=== PATIENT | female | born 1940 | race Caucasian/White ===

== ENCOUNTER → 2016-10-15 | Outpatient (REF) | payer MEDICARE, OTHER | LOC: M SMT 13:07 | PROVIDERS: ATTEND Nurse Practitioner Family | DX: Q61.00 Congenital renal cyst, unspecified (principal); Z79.899 Other long term (current) drug therapy | CPT/HCPCS: 81001; 87086; G0463 ==

== ENCOUNTER → 2017-03-10 | Outpatient (REF) | payer MEDICARE, OTHER | LOC: M LAB REF 16:56 | PROVIDERS: ATTEND Nurse Practitioner Women's Health | DX: N39.0 Urinary tract infection, site not specified (principal) ==

== ENCOUNTER 2023-10-28 14:52 | Inpatient (IN) | payer OTHER, MEDICARE ==
[~2023-10-28] VITALS: Ht 160 cm; Wt 74.1 kg
[2023-10-28] MEDS ORDERED: ISOVUE-370 76% 100ML VIAL As Ordered ONE (15:18)
[2023-10-28 15:37] LABS: BASO # 0.1 10^3/uL (0.0-0.2); BASO % 0.4 % (0.0-1.0); EOS # 0.2 10^3/uL (0.0-0.5); EOS % 1.4 % (0.0-3.0); HEMATOCRIT 39.7 % (36.0-47.0); HEMOGLOBIN 13.7 g/dl (12.0-15.5); LYMPH # 2.3 10^3/uL (1.5-5.0); LYMPH % 20.9 % (24.0-44.0); MEAN CORPUSCULAR HEMOGLOBIN 33.6 pg (27.0-33.0); MEAN CORPUSCULAR HGB CONC 34.5 g/dl (32.0-36.5); MEAN CORPUSCULAR VOLUME 97.3 fl (80.0-96.0); MONO # 0.7 10^3/uL (0.0-0.8); MONO % 6.5 % (2.0-8.0); NEUTROPHILS # 7.8 10^3/uL (1.5-8.5); NEUTROPHILS % 70.3 % (36.0-66.0); PLATELET COUNT, AUTOMATED 221 10^3/uL (150-450); RED BLOOD COUNT 4.08 10^6/uL (4.00-5.40); WHITE BLOOD COUNT 11.1 10^3/uL (4.0-10.0)
[2023-10-28 15:49] LABS: INR 1.06; PARTIAL THROMBOPLASTIN TIME 27.3 SECONDS (24.8-34.2); PROTHROMBIN TIME 13.5 SECONDS (12.5-14.5)
[2023-10-28 16:00] LABS: ALBUMIN 3.5 G/DL (3.2-5.2); ALKALINE PHOSPHATASE 72 U/L (46-116); ALT/SGPT 18 U/L (7.0-40); AST/SGOT 20 U/L (<34); BILIRUBIN,DIRECT < 0.1 MG/DL (<0.4); BILIRUBIN,TOTAL 0.3 MG/DL (0.3-1.2); BLOOD UREA NITROGEN 16 MG/DL (9-23); CALCIUM LEVEL 8.2 MG/DL (8.3-10.6); CARBON DIOXIDE LEVEL 26 MMOL/L (20-31); CHLORIDE LEVEL 104 MMOL/L (98-107); CK-MB VALUE MASS 1.7 NG/ML (<3.6); CREATININE FOR GFR 1.11 MG/DL (0.55-1.30); GLOMERULAR FILTRATION RATE 50.2 (>32); GLUCOSE, FASTING 127 MG/DL (74-106); POTASSIUM SERUM 3.6 MMOL/L (3.5-5.1); SODIUM LEVEL 136 MMOL/L (136-145); TOTAL PROTEIN 5.8 G/DL (5.7-8.2)
[2023-10-28 16:04] LABS: CPK CREATINE PHOSPHOKINASE 245 U/L (34-145); MB/CK RELATIVE INDEX 0.69 (< OR =4)
[2023-10-28 17:10] VITALS: O2SAT 94
[2023-10-28] MEDS: IPRATROPIUM 0.5MG/ALBUTEROL 2.5MG INH SOL UD 3ML (DUONEB) NEB ONE (17:11)
[2023-10-28 17:14] LABS: CK-MB VALUE MASS 2.7 NG/ML (<3.6)
[2023-10-28 17:19] LABS: MB/CK RELATIVE INDEX 1.02 (< OR =4)
[2023-10-28] MEDS: ONDANSETRON 4MG 2ML VIAL IV ONE (17:41)
[2023-10-28] MEDS: ACETAMINOPHEN TAB 650MG DOSE (2X325MG) PO ONE (18:38)
[2023-10-28] MEDS: NS 1,000 ML IV SCH (18:38)
[2023-10-28 19:15] LABS: MAGNESIUM LEVEL 1.8 MG/DL (1.8-2.4)
[2023-10-28] MEDS: LevoFLOXacin IV 750 MG in IV 1 EA IV ONE (19:20)
[2023-10-28] MEDS: MORPHINE 4 MG/ML 1ML VIAL IV ONE (19:49)
[2023-10-28] MEDS ORDERED: BUPR150T12 PO (20:09)
[2023-10-28] MEDS ORDERED: OMEP40CA5 PO (20:09)
[2023-10-28] MEDS ORDERED: TURM500C PO (20:09)
[2023-10-28] MEDS ORDERED: NEBI2.5T PO (20:09)
[2023-10-28] MEDS ORDERED: TRIA37.577 PO (20:09)
[2023-10-28] MEDS ORDERED: GABA600T4 PO (20:09)
[2023-10-28] MEDS ORDERED: ISOS1TAB35 PO (20:09)
[2023-10-28] MEDS ORDERED: BUSP5TA PO (20:09)
[2023-10-28] MEDS ORDERED: VENTAER INH (20:09)
[2023-10-28] MEDS ORDERED: TRAM50TA2 PO (20:09)
[2023-10-28] MEDS ORDERED: POTA-151 PO (20:09)
[2023-10-28] MEDS ORDERED: CIDE1TAB PO (20:09)
[2023-10-28] MEDS ORDERED: HOME MED LIST COMPLETE! XX SCH (20:10)
[2023-10-28 22:15] VITALS: BP 131/57; TEMP 101.5; O2SAT 99
[2023-10-28 22:30] VITALS: O2SAT 97
[2023-10-28] MEDS: ONDANSETRON 4MG 2ML VIAL IV PRN (23:01)
[2023-10-28] MEDS: GABAPENTIN 300 MG CAP PO SCH (23:02)
[2023-10-28] MEDS: LevoFLOXacin IV 750 MG in IV 1 EA IV SCH (23:02)
[2023-10-28] MEDS: traMADol 50 MG TAB PO PRN (23:03)
[2023-10-28] MEDS: busPIRone 5 MG TAB PO SCH (23:03)
[2023-10-28] MEDS: ACETAMINOPHEN TAB 650MG DOSE (2X325MG) PO PRN (23:06)
[2023-10-28] MEDS: NS 1,000 ML IV ONE (23:09)
[2023-10-29 01:21] VITALS: BP 112/58; TEMP 98.6; O2SAT 94
[2023-10-29] MEDS: HYDROMORPHONE HCL 0.5 MG/ 0.5 ML SYRINGE IV PRN (01:25)
[2023-10-29 04:40] VITALS: BP 105/55; TEMP 98.1; O2SAT 95
[2023-10-29 06:46] LABS: PROCALCITONIN 0.95 ng/ml
[2023-10-29 06:48] LABS: ALBUMIN 2.8 G/DL (3.2-5.2); BILIRUBIN,TOTAL 0.6 MG/DL (0.3-1.2); CALCIUM LEVEL 8.1 MG/DL (8.3-10.6); CREATININE FOR GFR 1.07 MG/DL (0.55-1.30); GLOMERULAR FILTRATION RATE 52.4 (>32); POTASSIUM SERUM 3.6 MMOL/L (3.5-5.1); TOTAL PROTEIN 5.2 G/DL (5.7-8.2)
[2023-10-29] MEDS: ENOXAPARIN 40MG/0.4ML SYRINGE (J1650 PER 10MG) SC SCH (08:29)
[2023-10-29] MEDS: PANTOPRAZOLE 40MG VIAL IV SCH (08:29)
[2023-10-29] MEDS: DYAZIDE 37.5/25 CAP (TRIAM/HCTZ) PO SCH (08:30)
[2023-10-29] MEDS: buPROPion **XL** TABLET 150MG (WELLBUTRIN XL) PO SCH (08:30)
[2023-10-29] MEDS: POTASSIUM CHLORIDE 10MEQ SR TABLET PO SCH (08:30)
[2023-10-29 08:31] VITALS: BP 117/59
[2023-10-29] MEDS: NEBIVOLOL 5 MG TAB (BYSTOLIC) PO SCH (08:31)
[2023-10-29] MEDS ORDERED: ISOSORBIDE MON. (IMDUR) 30MG XR TAB PO SCH (09:00)
[2023-10-29] MEDS: ALBUTEROL 90 MCG/ACT 8GM HFA INHALER INH PRN (09:02)
[2023-10-29 10:41] LABS: BASO % 0.2 % (0.0-1.0); EOS # 0.1 10^3/uL (0.0-0.5); EOS % 0.6 % (0.0-3.0); HEMATOCRIT 36.3 % (36.0-47.0); HEMOGLOBIN 12.2 g/dl (12.0-15.5); LYMPH # 2.2 10^3/uL (1.5-5.0); LYMPH % 17.8 % (24.0-44.0); MEAN CORPUSCULAR HEMOGLOBIN 33.4 pg (27.0-33.0); MEAN CORPUSCULAR HGB CONC 33.6 g/dl (32.0-36.5); MEAN CORPUSCULAR VOLUME 99.5 fl (80.0-96.0); MONO # 0.5 10^3/uL (0.0-0.8); MONO % 3.7 % (2.0-8.0); NEUTROPHILS # 9.5 10^3/uL (1.5-8.5); NEUTROPHILS % 77.4 % (36.0-66.0); PLATELET COUNT, AUTOMATED 172 10^3/uL (150-450); RED BLOOD COUNT 3.65 10^6/uL (4.00-5.40); WHITE BLOOD COUNT 12.3 10^3/uL (4.0-10.0)
[2023-10-29 11:04] LABS: MAGNESIUM LEVEL 1.6 MG/DL (1.8-2.4)
[2023-10-29 11:56] VITALS: BP 118/59; TEMP 98.4; O2SAT 92
[2023-10-29] MEDS: ANALGESIC BALM CRM 3OZ TOP SCH (11:58)
[2023-10-29] MEDS: SUCRALFATE SUSP 1GM/10ML UD PO SCH (12:00)
[2023-10-29] MEDS: MAG SULF 1GM/100ML (MAG RUN) 1 GM in IV 1 EA IV ONE (13:14)
[2023-10-29] MEDS ORDERED: MORPHINE 30 MG TAB **MSIR PO PRN (13:55)
[2023-10-29] MEDS ORDERED: NALOXONE INJ 0.4MG/1ML VIAL IV PRN (13:55)
[2023-10-29] MEDS ORDERED: PROT1TAB2 PO (13:56)
[2023-10-29] MEDS ORDERED: SUCR1ORA PO (13:56)
[2023-10-29] MEDS ORDERED: LEVO1TAB40 PO (13:57)
[2023-10-29 14:25] LABS: ERYTHROCYTE SEDIMENTATION RATE 19 mm/hr (0-30)
[2023-10-29 14:31] LABS: C REACTIVE PROTEIN QUANTITATIV 13.1 MG/DL (<1.0)
[2023-10-29] MEDS ORDERED: PILL CUTTER 1 EACH XX ONE (14:43)
[2023-10-29] MEDS: ACETAMINOPHEN 500 MG TAB PO SCH (14:50)
[2023-10-29] MEDS: MORPHINE 30 MG TAB **MSIR PO ONE (14:50)
[2023-10-29] MEDS ORDERED: REGL5TAB2 PO (17:52)
[2023-10-29] MEDS ORDERED: TOPA1TAB PO (17:57)
[2023-10-29] MEDS: TOPIRAMATE (TopAMAX) 25 MG TAB PO SCH (18:56)
[2023-10-29] MEDS: METOCLOPRAMIDE 5 MG TAB PO ONE (18:56)
[2023-10-29] MEDS: SUCRALFATE SUSP 1GM/10ML UD PO ONE (18:56)
[2023-10-29] MEDS ORDERED: METOCLOPRAMIDE INJ 10MG/2ML VIAL IV SCH (21:00)
[2023-11-01 17:57] LABS: ANA PATTERN Nuclear, Homogeneous (NEGATIVE); ANA PATTERN 2 Cytoplasmic; ANA SCREEN, IFA POSITIVE (NEGATIVE); ANA TITER 1:40 titer (<1:40); ANA TITER 2 1:40 titer (NEGATIVE)
== END 2023-10-29 19:09 | disposition home or self-care (01) | DRG 384 ==
LOC: M ED 14:52 → M ED INP 19:25 → M MSPAV 22:13
PROVIDERS: ADMIT Preventive Medicine Undersea and Hyperbaric Medicine; ATTEND General Practice
DX: S00.93XA Contusion of unspecified part of head, initial encounter (principal); R13.10 Dysphagia, unspecified; I11.0 Hypertensive heart disease with heart failure; E78.5 Hyperlipidemia, unspecified; I50.9 Heart failure, unspecified; M79.7 Fibromyalgia; J45.909 Unspecified asthma, uncomplicated; G43.909 Migraine, unspecified, not intractable, without status migrainosus; J32.0 Chronic maxillary sinusitis; V89.2XXA Person injured in unspecified motor-vehicle accident, traffic, initial encounter; M19.90 Unspecified osteoarthritis, unspecified site; Z90.79 Acquired absence of other genital organ(s); F17.290 Nicotine dependence, other tobacco product, uncomplicated; Z79.899 Other long term (current) drug therapy; Z88.0 Allergy status to penicillin; Z88.6 Allergy status to analgesic agent; Z88.8 Allergy status to other drugs, medicaments and biological substances; Z90.49 Acquired absence of other specified parts of digestive tract; R65.10 Systemic inflammatory response syndrome (SIRS) of non-infectious origin without acute organ dysfunction